=== PATIENT | male | born 1965 | race Two or more races ===

== ENCOUNTER 2019-06-01 19:58 | Emergency (ER) | payer MEDICAID, OTHER ==
[~2019-06-01] VITALS: Ht 172.7 cm; Wt 75.7 kg
[2019-06-01 20:12] VITALS: BP 143/89
[2019-06-01] MEDS ORDERED: ONDANSETRON 4 MG TAB.RAPDIS ONE (20:27)
[2019-06-01] MEDS ORDERED: ACETAMINOPHEN ES 500 MG TABLET ONE (20:27)
[2019-06-01] MEDS ORDERED: ACETAMINOPHEN ES 500 MG TABLET PO ONE (20:30)
[2019-06-01] MEDS ORDERED: ONDANSETRON 4 MG TAB.RAPDIS SL ONE (20:30)
== END 2019-06-01 21:02 | disposition home or self-care (01) ==
LOC: ER 19:58
DX: S39.012A Strain of muscle, fascia and tendon of lower back, initial encounter (principal); S19.80XA Other specified injuries of unspecified part of neck, initial encounter; V49.49XA Driver injured in collision with other motor vehicles in traffic accident, initial encounter; Y93.89 Activity, other specified; Y92.413 State road as the place of occurrence of the external cause; Y99.8 Other external cause status
CPT/HCPCS: 99283; Q0162

== ENCOUNTER 2019-06-06 12:24 | Emergency (ER) | payer MEDICAID, OTHER ==
[~2019-06-06] VITALS: Ht 170.2 cm; Wt 81.2 kg
[2019-06-06] MEDS ORDERED: IBUPROFEN 600 MG TABLET PO ONE ×2 (13:00→13:03)
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
[2019-06-06 14:07] VITALS: BP 128/81
--- NOTE | 2019-06-06 14:08 | NUR ---
Patient discharged to home in stable condition. Written and verbal after care instructions given. Patient verbalizes understanding of instruction.
== END 2019-06-06 14:07 | disposition home or self-care (01) ==
LOC: ER 12:28
DX: S06.0X0A Concussion without loss of consciousness, initial encounter (principal); Y04.0XXA Assault by unarmed brawl or fight, initial encounter; Y93.89 Activity, other specified; Y92.89 Other specified places as the place of occurrence of the external cause; Y99.8 Other external cause status
CPT/HCPCS: 70486-TC

== ENCOUNTER 2020-07-09 16:01 | Emergency (ER) | payer MEDICAID, OTHER ==
[~2020-07-09] VITALS: Ht 177.8 cm; Wt 72.6 kg
[2020-07-09 16:13] VITALS: BP 126/75
== END 2020-07-09 18:09 | disposition home or self-care (01) ==
LOC: ER 16:06
DX: U07.1 COVID-19 (principal)
CPT/HCPCS: 71046